=== PATIENT | male | born 1945 | race Caucasian/White ===

== ENCOUNTER 2022-11-22 12:13 | Observation (INO) | payer OTHER, BC ==
[2022-11-22 12:24] VITALS: BMI 25.8
[2022-11-22] MEDS ORDERED: ACETAMINOPHEN 1000 MG/100 ML BAG IVPB ONE (13:26)
[2022-11-22 13:32] LABS: INR 2.24 (0.83-1.09)
[2022-11-22 13:34] LABS: ACTIVATED PTT 42.8 SECONDS (25.2-36.5)
[2022-11-22 13:37] LABS: ALBUMIN 3.5 g/dl (3.4-5.0); BILIRUBIN,TOTAL 0.7 mg/dl (0.2-1)
[2022-11-22 13:43] LABS: TOT PROT 6.5 g/dl (6.4-8.2)
[2022-11-22] MEDS ORDERED: ACETAMINOPHEN INJECTION 100 ML IVPB ONE (13:56)
[2022-11-22] MEDS: SODIUM CHLORIDE 1,000 ML IV SCH (13:59)
[2022-11-22 15:08] LABS: HEMATOCRIT 43.9 % (35.4-49); HEMOGLOBIN 15.4 GM/dL (11.7-16.9); MCH 30.5 pg (25.7-33.7); MCHC 35.1 g/dl (32.0-35.9); MEAN CELL VOLUME 86.9 fl (80-96); MEAN PLT VOLUME 8.6 fl (7.5-11.1); PLATELET COUNT 229 10^3/uL (134-434); RBC 5.06 M/mm3 (4.00-5.60); RDW 13.9 % (11.9-15.9)
[2022-11-23 08:10] LABS: ALBUMIN 3.1 g/dl (3.4-5.0); BILIRUBIN,TOTAL 0.4 mg/dl (0.2-1); CALCIUM 8.4 mg/dl (8.5-10); CREATININE 0.8 mg/dl (0.55-1.3); TOT PROT 5.9 g/dl (6.4-8.2)
[2022-11-23] MEDS ORDERED: TAMSULOSIN HCL 0.4 MG CAP PO SCH ×2 (08:30→20:00)
[2022-11-23 09:45] LABS: BASO % 0.6 % (0-2.0); EOS % 3.8 % (0-4.5); HEMATOCRIT 40.9 % (35.4-49); HEMOGLOBIN 14.2 GM/dL (11.7-16.9); LYMPH % 18.6 % (8-40); MCH 30.1 pg (25.7-33.7); MCHC 34.7 g/dl (32.0-35.9); MEAN CELL VOLUME 86.8 fl (80-96); MEAN PLT VOLUME 8.8 fl (7.5-11.1); MONO % 9.2 % (3.8-10.2); NEUT % 67.8 % (42.8-82.8); PLATELET COUNT 217 10^3/uL (134-434); RBC 4.71 M/mm3 (4.00-5.60); WHITE BLOOD COUNT 5.8 K/mm3 (4.0-10.0)
[2022-11-23] MEDS ORDERED: ATENOLOL 25 MG TABLET (FP) PO SCH ×2 (10:00→20:00)
[2022-11-23] MEDS ORDERED: FINASTERIDE 5 MG TABLET (FP) PO SCH ×2 (10:00→20:00)
[2022-11-23] MEDS ORDERED: FLUoxetine HCL 20 MG CAPSULE PO SCH ×2 (10:00→20:00)
[2022-11-23] MEDS ORDERED: LISINOPRIL 10 MG TABLET PO SCH ×2 (10:00→20:00)
[2022-11-23] MEDS: ASPIRIN 81 MG CHEWABLE TABLETS PO SCH ×2 (13:35→18:12)
[2022-11-23] MEDS: SODIUM CHLORIDE 1,000 ML IV SCH (13:36)
[2022-11-23] MEDS ORDERED: ATORVASTATIN CA 80 MG TABLET (FP) PO SCH (22:00)
[2022-11-24] MEDS ORDERED: ACETAMINOPHEN 325 MG TABLET (FP) PO PRN (00:23)
[2022-11-24 07:55] LABS: INR 1.85 (0.83-1.09); PROTHROMBIN TIME (PATIENT) 21.4 SEC (9.7-13.0)
[2022-11-24 09:10] VITALS: BP 118/54; PULSE 69; RESP 14; TEMP 97.9
[2022-11-24] MEDS ORDERED: ASPIRIN 81 MG CHEWABLE TABLETS PO SCH (20:00)
== END 2022-11-24 12:33 | disposition home or self-care (01) ==
LOC: FER 12:13 → FM/S 16:59
PROVIDERS: ADMIT Internal Medicine
PROC: 3E033NZ Introduction of Analgesics, Hypnotics, Sedatives into Peripheral Vein, Percutaneous Approach (ICD-10-PCS; principal; 2022-11-22)
DX: G45.9 Transient cerebral ischemic attack, unspecified (principal); I10 Essential (primary) hypertension; E78.5 Hyperlipidemia, unspecified; N40.0 Benign prostatic hyperplasia without lower urinary tract symptoms; R42 Dizziness and giddiness; F32.A Depression, unspecified; Z79.01 Long term (current) use of anticoagulants
CPT/HCPCS: 0241U-QW; 36415; 70450-TC; 70551-TC; 71045-TC-FY; 80053; 80061; 82550; 83036; 84443; 84484; 85025; 85027; 85610; 85730; 86850; 86900; 86901; 93005; 93306-TC; 93880-TC; 96374; 99285-25; G0378